=== PATIENT | male | born 2005 | race Caucasian/White ===

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

== ENCOUNTER 2023-12-30 02:42 | Emergency (ER) | payer OTHER, SELFPAY ==
[~2023-12-30] VITALS: Ht 190.5 cm; Wt 87.7 kg
[~2023-12-30 02:42] MED LIST: ERYTOIN8 OS
[2023-12-30 07:02] VITALS: BP 128/65; TEMP 98.9; O2SAT 99
== END 2023-12-30 07:07 | disposition home or self-care (01) ==
LOC: M ED 02:42
DX: J11.1 Influenza due to unidentified influenza virus with other respiratory manifestations (principal); B34.8 Other viral infections of unspecified site